=== PATIENT | female | born 1985 | race African-American/Black ===

== ENCOUNTER 2018-10-23 22:04 | Emergency (ER) | payer MEDICARE, OTHER ==
[~2018-10-23] VITALS: Ht 162.6 cm; Wt 84.0 kg
[2018-10-23 22:14] VITALS: Ht 162.6 cm; Wt 84.0 kg
[2018-10-24] MEDS ORDERED: SOD CHLORIDE 0.9% 1,000 ML IV STA (00:54)
[2018-10-24] MEDS ORDERED: ONDANSETRON 4 MG INJ IV STA (00:54)
[2018-10-24] MEDS ORDERED: QUET200T27 PO (02:12)
[2018-10-24] MEDS ORDERED: TRAZ150T65 PO (02:12)
[2018-10-24] MEDS ORDERED: MAGN400T28 PO (02:12)
[2018-10-24] MEDS ORDERED: FOLI-49 PO (02:12)
[2018-10-24] MEDS ORDERED: CYAN500T46 PO (02:12)
[2018-10-24] MEDS ORDERED: HYDR200T5 PO (02:12)
[2018-10-24] MEDS ORDERED: ERGO500013 PO (02:12)
[2018-10-24] MEDS ORDERED: OMEG-135 PO (02:12)
[2018-10-24] MEDS ORDERED: PREG150C PO (02:12)
[2018-10-24] MEDS ORDERED: KETOROLAC 15 MG INJ IV STA (02:57)
[2018-10-24] MEDS ORDERED: morphine 10 MG INJ IV ONE (03:00)
--- NOTE | 2018-10-24 05:52 | ERD ---
ER Documentation Chief Complaint Chief Complaint abd pain and n/v today hx of lupus HPI This is a 33-year-old female with a past medical history of Sjogren's, lupus, fibromyalgia with diffuse chronic pains who is presenting with exacerbated pain over the last 2-3 days. The patient reports getting back injections, but she felt that she did not get enough. The patient endorses full body pains including chest pain, abdominal pain and back pain. She reports that the pain was so severe that it led to nausea and a few episodes of nonbilious nonbloody vomiting. The patient reports needing to come to the emergency department appr oximately twice a month for pain control. She does see a pain specialist, but she reports that she ran out of her narcotic medications at home recently. The patient denies feeling sick recently. The patient denies fever or chills. The patient has had no headache or vision changes. The patient denies lightheadedness or dizziness. The patient has had no trouble breathing. The patient denies changes to bowel movements or urination. The patient has had no focal deficits. The patient has had no weakness or numbness or tingling to the face or extremities. ROS All systems reviewed and are negative except as per history of present illness. Medications Home Meds Reported Medications Bee-3 Fatty Acids/Fish Oil (Fish Oil 1,000 mg Capsule) 1 Each Capsule, 1 EACH PO, CAP 10/24/18 Folic Acid* (Folic Acid*) 1 Mg Tablet, 1 MG PO DAILY, TAB 10/24/18 Ergocalciferol (Vitamin D2) (VITAMIN D2) 50,000 Unit Capsule, 56979 UNIT PO QMONDAY, CAP 10/24/18 Cyanocobalamin* (Vitamin B12*) 500 Mcg Tab, 1000 MCG PO DAILY, TAB 10/24/18 Magnesium Oxide* (Magnesium Oxide*) 400 Mg Tablet, 400 MG PO BID, TAB 10/24/18 Quetiapine Fumarate* (Quetiapine Fumarate*) 200 Mg Tablet, 200 MG PO HS, TAB 10/24/18 Trazodone Hcl* (Trazodone Hcl*) 150 Mg Tablet, 150 MG PO QHS, #30 TAB 10/24/18 Hydroxychloroquine Sulfate* (Plaquenil*) 200 Mg Tab, 200 MG PO BID, TAB 10/24/18 Pregabalin* (Lyrica*) 150 Mg Capsule, 150 MG PO TID, CAP 10/24/18 Allergies Allergies: Coded Allergies: Penicillins (Verified Allergy, Unknown, 10/23/18) codeine (Verified Allergy, Unknown, 10/23/18) erythromycin base (Verified Allergy, Unknown, 10/23/18) tramadol (Verified Allergy, Unknown, 10/23/18) PMhx/Soc Medical and Surgical Hx: pt denies Surgical Hx History of Surgery: No Anesthesia Reaction: No Hx Neurological Disorder: No Hx Respiratory Disorders: No Hx Cardiac Disorders: No Hx Psychiatric Problems: No Hx Miscellaneous Medical Probl: Yes (Fibromyalgia, lupus, Sjogren's) Hx Alcohol Use: No Hx Substance Use: No Hx Tobacco Use: No Smoking Status: Never smoker FmHx Family History: No diabetes Physical Exam Vitals Vital Signs Date Temp Pulse Resp B/P (MAP) Pulse Ox O2 O2 Flow FiO2 Time Delivery Rate 10/24/18 97.9 85 12 108/65 100 Room Air 04:52 (79) 10/24/18 97.9 81 12 109/66 100 Room Air 03:42 (80) 10/24/18 97.9 81 13 113/65 100 Room Air 02:47 (81) 10/24/18 97.9 78 13 109/84 100 Room Air 01:26 (92) 10/23/18 97.9 93 20 135/71 100 22:14 (92) Physical Exam Const: No apparent distress, well-developed, well-nourished Head: Normocephalic, Atraumatic Eyes: Normal Conjunctiva. Extraocular movements intact. Pupils equal, round and reactive to light ENT: Normal External Ears, Nose and Mouth. Neck: Full range of motion. No meningismus. Resp: Clear to auscultation bilaterally, No wheezes, rales or rhonchi Cardio: Regular rate and rhythm. No murmurs, rubs or gallops Abd: Soft, non tender, non distended. Normal bowel sounds Skin: No petechiae or rashes Back: No midline tenderness. No CVA tenderness Ext: No cyanosis, or edema Neur: Awake and alert, oriented 4. Cranial nerves intact. No facial droop. Normal strength, sensation and coordination. Psych: Normal Mood and Affect Result Diagram: 10/24/1822010/24/18220 Results 24 hrs Laboratory Tests Test 10/24/18 01:00 10/24/18 01:20 10/24/18 02:21 Urine Color YELLOW Urine Clarity SLIGHTLY CLOUDY Urine pH 5.0 Urine Specific [place]ne 1.026 Urine Ketones 1+ mg/dL Urine Nitrite NEGATIVE mg/dL Urine Bilirubin NEGATIVE mg/dL Urine Urobilinogen NEGATIVE mg/dL Urine Leukocyte Esterase NEGATIVE Gena/ul Urine Microscopic RBC 13 /HPF Urine Microscopic WBC 1 /HPF Urine Squamous Epithelial Cells FEW /HPF Urine Bacteria FEW /HPF Urine Mucus FEW /HPF Urine Hemoglobin 2+ mg/dL Urine Glucose NEGATIVE mg/dL Urine Total Protein NEGATIVE mg/dl POC Beta HCG, Qualitative NEGATIVE White Blood Count 8.6 10^3/ul Red Blood Count 4.44 10^6/ul Hemoglobin 12.1 g/dl Hematocrit 38.1 % Mean Corpuscular Volume 85.8 fl Mean Corpuscular Hemoglobin 27.3 pg Mean Corpuscular 31.8 g/dl Hemoglobin Concent Red Cell Distribution Width 13.9 % Platelet Count 237 10^3/UL Mean Platelet Volume 9.9 fl Immature Granulocytes % 0.300 % Neutrophils % 66.4 % Lymphocytes % 26.2 % Monocytes % 6.5 % Eosinophils % 0.3 % Basophils % 0.3 % Nucleated Red Blood Cells % 0.0 /100WBC Immature Granulocytes # 0.030 10^3/ul Neutrophils # 5.7 10^3/ul Lymphocytes # 2.3 10^3/ul Monocytes # 0.6 10^3/ul Eosinophils # 0.0 10^3/ul Basophils # 0.0 10^3/ul Nucleated Red Blood Cells # 0.0 10^3/ul Sodium Level 142 mmol/L Potassium Level 3.8 mmol/L Chloride Level 105 mmol/L Carbon Dioxide Level 24 mmol/L Anion Gap 13 Blood Urea Nitrogen 13 mg/dl Creatinine 0.69 mg/dl Est Glomerular Filtrat > 60 mL/min Rate mL/min Glucose Level 88 mg/dl Calcium Level 10.0 mg/dl Total Bilirubin 0.2 mg/dl Direct Bilirubin 0.00 mg/dl Indirect Bilirubin 0.2 mg/dl Aspartate Amino 24 IU/L Transf (AST/SGOT) Alanine 15 IU/L Aminotransferase (ALT/SGPT) Alkaline Phosphatase 113 IU/L Total Protein 8.6 g/dl Albumin 4.8 g/dl Globulin 3.80 g/dl Albumin/Globulin Ratio 1.26 Lipase 30 U/L Current Medications Medications Dose Sig/Priscilla Start Time Status Last (Trade) Ordered Route PRN Stop Time Admin Dose Reason Admin Sodium 1,000 ml @ Q1H STAT 10/24/18 DC 10/24/18 Chloride 1,000 mls/hr IV 00:54 00:54 10/24/18 01:53 Ondansetron 4 mg ONCE STAT 10/24/18 DC 10/24/18 HCl (Zofran IV 00:54 00:54 Inj) 10/24/18 00:56 Morphine 6 mg ONCE ONCE 10/24/18 DC 10/24/18 Sulfate IV 03:00 03:07 (morphine) 10/24/18 03:01 Ketorolac 15 mg ONCE STAT 10/24/18 DC 10/24/18 Tromethamine IV 02:57 03:07 (Toradol) 10/24/18 02:59 Procedures/MDM MDM The patient's presentation warrants further investigation. Previous medical records, if available, were reviewed. LABS The patient's laboratory testing was obtained and reviewed. No emergent treatment was required unless described below. CBC: No E/o of systemic infection or severe anemia or thrombocytopenia CMP: No E/o severe acidosis or alkalosis or renal failure or liver disease or diabetic ketoacidosis Lipase: No E/o pancreatitis Urine: No E/o acute infection. + hematuria EKG EKG read by me: Rate/Rhythm: Regular rate and rhythm at a rate of 81 bpm Intervals: Normal [place]: Normal Impression: No evidence of acute ischemia or arrhythmia IMAGING Imaging and Radiology interpretation reviewed. CXR FINDINGS: The patient is rotated to the left and tilted to the right. Hypoventilatory chest. Heart normal limits in size. Discoid atelectasis at the right base. No other evidence of lung consolidation pleural effusions and pneumothorax. Normal pulmonary vasculature. IMPRESSION: No evidence of congestive heart failure or pneumonia. Electronically viewed and signed by Physician Steph on 10/24/2018 04:40 CT Abd/Pelvis FINDINGS: The kidneys are normal in size without calcified calculi, hydronephrosis or intra renal masses bilaterally. No evidence of ureteral calcified calculi or dilatation. Partially contracted otherwise unremarkable urinary bladder. Anteverted uterus otherwise unremarkable. No definite adnexal masses. Moderate free fluid in the pouch of Chaz. No other abdominal free fluid. Negative intra-abdominal free air or abscess. Prominent nonspecific left periaortic lymph nodes but no definite abdominal pelvic lymphadenopathy. Stomach, small bowel, and large bowel are unremarkable. The appendix is not definitely identified however no CT evidence of appendicitis. Liver spleen pancreas adrenal glands and gallbladder unremarkable. No evidence biliary ductal dilation. Aorta unremarkable. Tiny fat containing umbilical hernia without herniated bowel or strangulation. Mild scarring involving the right middle lobe. Osseous structures unremarkable without acute osseous findings or osteoblastic/osteolytic lesions. IMPRESSION: 1. No calcified urinary calculi or obstructive uropathy. 2. Moderate free fluid in the pouch of Chaz without intra-abdominal free air abscesses or lymphadenopathy. Follow-up pelvic ultrasound may be helpful. 3. No gastrointestinal disease. Electronically viewed and signed by Physician Steph on 10/24/2018 04:28 TREATMENT/DISPOSITION The patient presents with exacerbation of her chronic pains. The patient ran out of her narcotic medication at home and presents to the emergency department for desire for pain control. The patient also endorses nausea and vomiting, which she equates to the pain being unbearable. The patient was given IV fluids, Zofran, Toradol and morphine with significant improvement of her pain. The patient understands the need to follow-up with her pain specialist. I do not intend to prescribe any narcotic medications from the emergency department as these medicines should be prescribed by her pain physician who can longitudinally manage her care. The patient did have hematuria on her urinalysis. She denies any vaginal bleeding at this time. She does have pain and reports having had a kidney stone in the past. A CT scan was performed to evaluate for this. There is no evidence of nephrolithiasis. The patient does have fluid in the pouch of Chaz. There is no evidence of any concerning intra-abdominal pathology. The patient is not . She is not have any lower pelvic pain. The patient denies any vaginal discharge or burning or bleeding or pain. I have low suspicion for ectopic . I do not suspect tubo-ovarian abscess. I do not suspect ovarian torsion. The patient reports that she is due for a gynecology follow-up. I encouraged her to call for follow-up for this week. The patient's chest xray does not reveal pneumonia or pneumothorax or pleural effusions or pulmonary edema. She does not have a widened mediastinum and does not have signs or symptoms concerning for thoracic aortic aneurysm or dissection . The patient does not have pneumomediastinum or signs concerning for esophageal tear or rupture. The patient has no clinical or radiographic signs of pericardial effusion or tamponade. The patient does not have pneumoperitoneum and I have decreased suspicion of viscus perforation as possible referred pain. The patient does not have a history of heart failure and I have low suspicion for this. The patient does not have a diagnosis of COPD and is not wheezing today. The patient is not tachypneic or hypoxic. The patient is breathing comfortably and without pleuritic pain. The patient is not on hormonal therapy. The patient has no history of clotting or bleeding disorders. The patient has no calf tenderness. The patient has had no hemoptysis. I have decreased suspicion for PE. The patient's EKG is reassuring. I have low suspicion for acute coronary syndrome. Upon reevaluation of the patient, symptoms have improved. No emergent diagnoses were identified. At this time, I feel that the patient stable for discharge. The patient was instructed to follow-up with a primary care physician in 1-3 days. The patient will be given strict precautions with which to return to the emergency department. Prescriptions: None The patient's blood pressure was elevated at greater than 120/80 while in the emergency department. The patient was otherwise stable with no evidence of hypertensive urgency or emergency. The patient does not require admission for blood pressure control. I have discussed with the patient the risks of hypertension. I have instructed the patient to return to the ER for any new or worsening symptoms including chest pain, shortness of breath, headache, blurred vision, confusion, nausea, vomiting or LOC. I have advised the patient to follow up with the primary care physician for outpatient monitoring and treatment for hypertension in 1-3 days. Disclaimer: Inadvertent spelling and grammatical errors are likely due to EHR/dictation software use and do not reflect on the overall quality of patient care. Note that the electronic time recorded on this note does not necessarily reflect the actual time of the patient encounter. Departure Diagnosis: Primary Impression: Chronic pain Chronic pain type: chronic pain syndrome Qualified Codes: G89.4 - Chronic pain syndrome Additional Impressions: Nonspecific chest pain Abdominal pain Abdominal location: unspecified location Qualified Codes: R10.9 - Unspecified abdominal pain Back pain Back pain location: back pain in unspecified location Chronicity: chronic Back pain laterality: bilateral Qualified Codes: M54.9 - Dorsalgia, unspecified; G89.29 - Other chronic pain Hematuria Hematuria type: asymptomatic microscopic Qualified Codes: R31.21 - Asymptomatic microscopic hematuria Free fluid in pelvis History of autoimmune disease Condition: DALIA Nova MD Oct 24, 2018 05:47
[2018-10-24] MEDS ORDERED: ZOF8 PO (05:54)
[2018-10-24 05:57] VITALS: BP 115/68; PULSE 84; RESP 12
== END 2018-10-24 06:06 | disposition home or self-care (01) ==
LOC: E/R 22:04
DX: R10.84 Generalized abdominal pain (principal); R07.9 Chest pain, unspecified; M54.9 Dorsalgia, unspecified; R31.21 Asymptomatic microscopic hematuria; R19.09 Other intra-abdominal and pelvic swelling, mass and lump; Z86.2 Personal history of diseases of the blood and blood-forming organs and certain disorders involving the immune mechanism
CPT/HCPCS: 71045; 74176; 80053; 81001; 81025; 83690; 85025; 96374; 96375; 99285; J1885; J2270; J2405; J7030

== ENCOUNTER 2018-11-14 01:02 | Emergency (ER) | payer MEDICARE, OTHER ==
[~2018-11-14] VITALS: Ht 165.1 cm; Wt 86.4 kg
[~2018-11-14 01:02] MED LIST: CYAN500T46 PO; ERGO500013 PO; FOLI-49 PO; HYDR200T5 PO; MAGN400T28 PO; OMEG-135 PO; PREG150C PO; QUET200T27 PO; TRAZ150T65 PO; ZOF8 PO
[2018-11-14 01:16] VITALS: BP 122/69; PULSE 88; RESP 18; Ht 165.1 cm; Wt 86.4 kg
[2018-11-14] MEDS ORDERED: ONDANSETRON (ODT) 4 MG TAB ODT STA (06:29)
[2018-11-14] MEDS ORDERED: HYDROCODONE/APAP (5/325) TAB PO ONE (06:30)
--- NOTE | 2018-11-14 10:38 | ERD ---
ER Documentation Chief Complaint Chief Complaint chronic body pain x 2 days. hx of fibromyalgia HPI 33-year-old female presenting with chronic body pain. She has a history of fibromyalgia and has a long history of narcotic dependency. She denies any recent traumatic injuries or falls. She states seeing she has some pain to her right shoulder. She has a painter rough that she primarily sees however is unable to see her. She is requesting pain medication at this time. Medical history is fibromyalgia and asthma. Surgical history D&C. Allergy to codeine erythromycin penicillin and tramadol. ROS All systems reviewed and are negative except as per history of present illness. Medications Home Meds Active Scripts Ondansetron Hcl* (Zofran*) 8 Mg Tab, 8 MG PO Q6H PRN for NAUSEA AND OR VOMITING for 20 Days, TAB Prov:DAILA MEJÍA MD 10/24/18 Reported Medications Chase-3 Fatty Acids/Fish Oil (Fish Oil 1,000 mg Capsule) 1 Each Capsule, 1 EACH PO, CAP 10/24/18 Folic Acid* (Folic Acid*) 1 Mg Tablet, 1 MG PO DAILY, TAB 10/24/18 Ergocalciferol (Vitamin D2) (VITAMIN D2) 50,000 Unit Capsule, 73796 UNIT PO QMONDAY, CAP 10/24/18 Cyanocobalamin* (Vitamin B12*) 500 Mcg Tab, 1000 MCG PO DAILY, TAB 10/24/18 Magnesium Oxide* (Magnesium Oxide*) 400 Mg Tablet, 400 MG PO BID, TAB 10/24/18 Quetiapine Fumarate* (Quetiapine Fumarate*) 200 Mg Tablet, 200 MG PO HS, TAB 10/24/18 Trazodone Hcl* (Trazodone Hcl*) 150 Mg Tablet, 150 MG PO QHS, #30 TAB 10/24/18 Hydroxychloroquine Sulfate* (Plaquenil*) 200 Mg Tab, 200 MG PO BID, TAB 10/24/18 Pregabalin* (Lyrica*) 150 Mg Capsule, 150 MG PO TID, CAP 10/24/18 Allergies Allergies: Coded Allergies: Penicillins (Verified Allergy, Unknown, 10/23/18) codeine (Verified Allergy, Unknown, 10/23/18) erythromycin base (Verified Allergy, Unknown, 10/23/18) tramadol (Verified Allergy, Unknown, 10/23/18) PMhx/Soc History of Surgery: No Anesthesia Reaction: No Hx Neurological Disorder: No Hx Respiratory Disorders: Yes (ASTHMA) Hx Cardiac Disorders: No Hx Psychiatric Problems: No Hx Miscellaneous Medical Probl: Yes (Fibromyalgia, lupus, Sjogren's, GERD) Hx Alcohol Use: No Hx Substance Use: No Hx Tobacco Use: No Smoking Status: Never smoker FmHx Family History: No diabetes, No coronary disease, No other Physical Exam Vitals Vital Signs Date Temp Pulse Resp B/P (MAP) Pulse Ox O2 O2 Flow FiO2 Time Delivery Rate 11/14/18 97.5 88 18 122/69 100 01:16 (86) Physical Exam GENERAL: The patient is well-appearing, well-nourished, in no acute distress NECK: C-spine is soft and supple. There is no meningismus. There is no cervical lymphadenopathy. CHEST: Clear to auscultation bilaterally. There are no rales, wheezes or rhonchi. HEART: Regular rate and rhythm. No murmurs, clicks, rubs or gallops. BACK: No midline or flank tenderness. EXTREMITIES: Equal pulses bilaterally. There is no peripheral clubbing, cyanosis or edema. No focal swelling or erythema. Full range of motion. Grossly neurovascularly intact. NEUROLOGIC: Alert and oriented. Cranial nerves II through XII intact. Motor strength in all 4 extremities with 5 out of 5 strength. Sensation grossly intact. Normal speech and gait. Babinski negative. DTR 2+ throughout. SKIN: There is no apparent rash or petechiae. The skin is warm and dry. Results 24 hrs Current Medications Medications Dose Sig/Priscilla Start Time Status Last (Trade) Ordered Route PRN Stop Time Admin Dose Reason Admin 1 tab ONCE ONCE 11/14/18 DC 11/14/18 Acetaminophen PO 06:30 06:39 / 11/14/18 06:31 Hydrocodone Bitart ([place] (5/325)) Ondansetron 4 mg ONCE STAT 11/14/18 DC 11/14/18 HCl (Zofran ODT 06:29 06:39 Odt) 11/14/18 06:31 Procedures/MDM MDM: 33-year-old female presenting with chronic pain. Patient has concerns for narcotic abuse and I will avoid discharging patient with pain medication. Patient was given a pill in the ER for pain however I refused to fill or prescribe any narcotic or controlled substances at this pressure. Explained to patient that there is concern for narcotic dependency and I was unable to write medication. I did supply patient with pain management specialists patient is discharged stricter precautions and told to follow-up with primary care and painter rough. Patient is told symptoms change or worsen to return immediately to the ER. All questions answered at discharge Departure Diagnosis: Primary Impression: Pain management Condition: Stable Patient Instructions: Pain Management Referrals: DELIO SLATER MD [facility] YOU HAVE RECEIVED A MEDICAL SCREENING EXAM AND THE RESULTS INDICATE THAT YOU DO NOT HAVE A CONDITION THAT REQUIRES URGENT TREATMENT IN THE EMERGENCY DEPARTMENT. FURTHER EVALUATION AND TREATMENT OF YOUR CONDITION CAN WAIT UNTIL YOU ARE SEEN IN YOUR DOCTORS OFFICE WITHIN THE NEXT 1-2 DAYS. IT IS YOUR RESPONSIBILITY TO M ROBI AN APPOINTMENT FOR FOLOW-UP CARE. IF YOU HAVE A PRIMARY DOCTOR --you should call your primary doctor and schedule an appointment IF YOU DO NOT HAVE A PRIMARY DOCTOR YOU CAN CALL OUR PHYSICIAN REFERRAL HOTLINE AT IF YOU CAN NOT AFFORD TO SEE A PHYSICIAN YOU CAN CHOSE FROM THE FOLLOWING [facility] [address] [facility]. [facility] [address] [facility] [facility] [address] [facility] [facility] [address] [facility] [address] [facility]. [facility]. [address] Additional Instructions: FOLLOW UP WITH YOUR PRIMARY CARE PHYSICIAN TOMORROW.Return to this facility if you are not improving as expected. ARISTIDES BLANCAS PA-C Nov 14, 2018 10:38
== END 2018-11-14 07:40 | disposition home or self-care (01) ==
LOC: FTE 01:02
DX: M25.511 Pain in right shoulder (principal); J45.909 Unspecified asthma, uncomplicated
CPT/HCPCS: 99283

== ENCOUNTER 2018-11-22 18:58 | Emergency (ER) | payer MEDICARE, OTHER ==
[~2018-11-22] VITALS: Ht 172.7 cm; Wt 88.0 kg
[2018-11-22 19:31] VITALS: Ht 172.7 cm; Wt 88.0 kg
[2018-11-22] MEDS ORDERED: ONDANSETRON (ODT) 4 MG TAB ODT STA (22:55)
[2018-11-22] MEDS ORDERED: HYDROCODONE/APAP (5/325) TAB PO ONE (23:00)
[2018-11-22] MEDS ORDERED: KETOROLAC 30 MG INJ IM STA (23:02)
[2018-11-22 23:59] VITALS: BP 110/79; PULSE 86; RESP 18
--- NOTE | 2018-11-23 02:20 | ERD ---
ER Documentation Chief Complaint Chief Complaint RIGHT SHOULDER/HIP PAIN, HX OF FIBER MIALGIA HPI This is a 33-year-old female with past medical history of lupus, fibromyalgia and narcotic dependence who presents to the ED with exacerbation of her chronic pains status post spending the night handcuffed to a [facility] cell 5 days ago. Patient is complaining of muscle and joint pains, most prominent to her right shoulder and left hip. She states her pain became worse 2 days ago and she has been unable to alleviate it with her muscle relaxers and gabapentin. She states she has a prescription for [place] which she has been unable to fill due to several pharmacies "not having them". She presents today requesting relief of her pain until she is able to see her painter set and neurologist in a few days. She denies any new trauma or injuries. Denies any fevers or chills. Denies any numbness, tingling, or focal weakness. No other complaints. ROS All systems reviewed and are negative except as per history of present illness. Medications Home Meds Active Scripts Ondansetron Hcl* (Zofran*) 8 Mg Tab, 8 MG PO Q6H PRN for NAUSEA AND OR VOMITING for 20 Days, TAB Prov:DALIA MEJÍA MD 10/24/18 Reported Medications [place]-3 Fatty Acids/Fish Oil (Fish Oil 1,000 mg Capsule) 1 Each Capsule, 1 EACH PO, CAP 10/24/18 Folic Acid* (Folic Acid*) 1 Mg Tablet, 1 MG PO DAILY, TAB 10/24/18 Ergocalciferol (Vitamin D2) (VITAMIN D2) 50,000 Unit Capsule, 76905 UNIT PO QMONDAY, CAP 10/24/18 Cyanocobalamin* (Vitamin B12*) 500 Mcg Tab, 1000 MCG PO DAILY, TAB 10/24/18 Magnesium Oxide* (Magnesium Oxide*) 400 Mg Tablet, 400 MG PO BID, TAB 10/24/18 Quetiapine Fumarate* (Quetiapine Fumarate*) 200 Mg Tablet, 200 MG PO HS, TAB 10/24/18 Trazodone Hcl* (Trazodone Hcl*) 150 Mg Tablet, 150 MG PO QHS, #30 TAB 10/24/18 Hydroxychloroquine Sulfate* (Plaquenil*) 200 Mg Tab, 200 MG PO BID, TAB 10/24/18 Pregabalin* (Lyrica*) 150 Mg Capsule, 150 MG PO TID, CAP 10/24/18 Allergies Allergies: Coded Allergies: Penicillins (Verified Allergy, Unknown, 10/23/18) codeine (Verified Allergy, Unknown, 10/23/18) erythromycin base (Verified Allergy, Unknown, 10/23/18) tramadol (Verified Allergy, Unknown, 10/23/18) PMhx/Soc Medical and Surgical Hx: pt denies Surgical Hx History of Surgery: No Anesthesia Reaction: No Hx Neurological Disorder: No Hx Respiratory Disorders: Yes (ASTHMA) Hx Cardiac Disorders: No Hx Psychiatric Problems: No Hx Miscellaneous Medical Probl: Yes (Fibromyalgia, lupus, Sjogren's, GERD) Hx Alcohol Use: No Hx Substance Use: No Hx Tobacco Use: No Smoking Status: Never smoker Physical Exam Vitals Vital Signs Date Temp Pulse Resp B/P (MAP) Pulse Ox O2 O2 Flow FiO2 Time Delivery Rate 11/22/18 97.8 86 18 110/79 100 Room Air 23:59 (89) 11/22/18 98.0 105 18 117/65 100 19:31 (82) Physical Exam Const: No acute distress Head: Atraumatic Eyes: Normal Conjunctiva ENT: Normal External Ears, Nose and Mouth. Neck: Full range of motion. No meningismus. Resp: Clear to auscultation bilaterally Cardio: Regular rate and rhythm, no murmurs Abd: Soft, non tender, non distended. Normal bowel sounds Skin: No petechiae or rashes Back: No midline or flank tenderness Ext: No cyanosis, or edema. Full ROM of all extremities without pain Neur: Awake and alert Psych: Normal Mood and Affect Results 24 hrs Laboratory Tests Test 11/22/18 23:18 POC Beta HCG, Qualitative NEGATIVE Current Medications Medications Dose Sig/Priscilla Start Time Status Last (Trade) Ordered Route PRN Stop Time Admin Dose Reason Admin Ondansetron 4 mg ONCE STAT 11/22/18 DC 11/22/18 HCl (Zofran ODT 22:55 23:06 Odt) 11/22/18 22:57 1 tab ONCE ONCE 11/22/18 DC 11/22/18 Acetaminophen PO 23:00 23:06 / 11/22/18 23:01 Hydrocodone Bitart ([place] (5/325)) Ketorolac 30 mg ONCE STAT 11/22/18 DC 11/22/18 Tromethamine IM 23:02 23:29 (Toradol) 11/22/18 23:03 Procedures/MDM Nursing Notes Reviewed. Previous Medical Records requested via the Electronic Health Record. EMERGENCY DEPARTMENT COURSE / MEDICAL DECISION MAKING: Patient is a 33-year-old female with past medical history of fibromyalgia and lupus who presents to the ED with exacerbation of her chronic pains. This is patient's fourth visit in the ED in the past 2 months for same complaints, and most recently seen about a week ago for same. I discussed with patient that I will give her medications here for relief but will not prescribe additional medications as she has a prescription for [place] already. She was given [place], Toradol and Zofran with improvement of her symptoms. Patient was requesting a stronger dose of [place] stating that "I take at least 7.5 mg" however review of her records from the [facility] database reveals that her usual [place] prescriptions are 5-325 mg dosages. I discussed this with the patient at bedside and explained to her that I do not think she needs additional dosages of [place] as her pain had significantly improved. Patient was discharged and told to follow-up with her painter set, whom she has an appointment with next week. Strict return precautions were given. Prior to discharge, patients vital signs have been reviewed SPECIALIST FOLLOW UP RECOMMENDED: senior tax specialist Patient has been advised to follow up with primary care in 1-2 days. Departure Diagnosis: Primary Impression: Pain management Additional Impression: Fibromyalgia Condition: Stable Patient Instructions: Fibromyalgia Referrals: DOCTOR,NOT ON STAFF (PCP) Additional Instructions: I recommend following up with a painter set for her chronic pains. I will might provide you a prescription for any further narcotics as this should be managed by her chronic pain specialist. You are welcome to return to the ED for any new or worsening symptoms. MYCHAL TALLEY PA-C Nov 23, 2018 02:19
== END 2018-11-23 00:01 | disposition home or self-care (01) ==
LOC: FTE 18:58
DX: M25.511 Pain in right shoulder (principal); M79.7 Fibromyalgia; J45.909 Unspecified asthma, uncomplicated
CPT/HCPCS: 81025; 96372; 99284; J1885